=== PATIENT | female | born 1935 | race Caucasian/White ===

== ENCOUNTER 2018-10-28 08:16 | Day surgery (SDC) | payer MEDICARE, OTHER ==
[~2018-10-28] VITALS: Ht 160 cm; Wt 76.8 kg
[~2018-10-28 08:16] MED LIST: ACET325 PO; Amlodipine Bes2.5 MG PO; GLIP2.5ER PO; HYDCHL25 PO; LISI20 PO; MULTI VITAMIN1 EACH PO; Neurontin 300300 MG PO; Pravachol40 MG PO; Prilosec Otc20 MG PO
== END 2018-10-28 10:37 | disposition home or self-care (01) ==
LOC: ORSCSDS 08:16
PROVIDERS: Internal Medicine Gastroenterology
PROC: 0DJD8ZZ Inspection of Lower Intestinal Tract, Via Natural or Artificial Opening Endoscopic (ICD-10-PCS; principal; 2018-10-28 09:30)
DX: K62.5 Hemorrhage of anus and rectum (principal); K64.8 Other hemorrhoids; E11.9 Type 2 diabetes mellitus without complications; I10 Essential (primary) hypertension; G25.81 Restless legs syndrome; K21.9 Gastro-esophageal reflux disease without esophagitis; E78.5 Hyperlipidemia, unspecified; Z79.84 Long term (current) use of oral hypoglycemic drugs; Z79.899 Other long term (current) drug therapy
CPT/HCPCS: 74270; 82947; J2704; J7120

== ENCOUNTER → 2022-01-04 | Outpatient (CLI) | payer MEDICARE, OTHER ==
[~2022-01-04] MED LIST changes: +METO25 PO; +XARELTO20 MG PO
== END | disposition home or self-care (01) ==
LOC: LAB SHORT 10:30
DX: R30.0 Dysuria (principal)
CPT/HCPCS: 87077; 87086; 87186